=== PATIENT | female | born 1970 | race African-American/Black ===

== ENCOUNTER 2019-09-14 16:09 | Emergency (ER) | payer OTHER ==
[~2019-09-14] VITALS: Ht 157.5 cm; Wt 73.9 kg
[2019-09-14 16:21] VITALS: BP 126/60
[2019-09-14] MEDS ORDERED: predniSONE 20 MG TAB PO ONE (16:40)
[2019-09-14] MEDS ORDERED: FAMOTIDINE 20 MG TAB PO ONE (16:40)
[2019-09-14 17:00] VITALS: BP 126/60
== END 2019-09-14 17:00 | disposition home or self-care (01) ==
LOC: MED 16:09
DX: T78.40XA Allergy, unspecified, initial encounter (principal); R22.0 Localized swelling, mass and lump, head; F17.200 Nicotine dependence, unspecified, uncomplicated; F12.90 Cannabis use, unspecified, uncomplicated; Z71.6 Tobacco abuse counseling; X58.XXXA Exposure to other specified factors, initial encounter
CPT/HCPCS: 99283; J7512